=== PATIENT | female | born 2000 | race Caucasian/White ===

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

== ENCOUNTER 2020-03-31 17:50 | Emergency (ER) | payer OTHER ==
[~2020-03-31] VITALS: Ht 165.1 cm; Wt 90.7 kg
[2020-03-31 18:44] VITALS: BP 85/57
--- NOTE | 2020-03-31 19:00 | NUR ---
APPLIED DRESSING TO RIGHT 5TH DIGIT WITHOUT ANY ISSUES
== END 2020-03-31 19:35 | disposition home or self-care (01) ==
LOC: MED 17:50
DX: S61.217A Laceration without foreign body of left little finger without damage to nail, initial encounter (principal); J45.909 Unspecified asthma, uncomplicated; W45.8XXA Other foreign body or object entering through skin, initial encounter; Y93.G1 Activity, food preparation and clean up; Y92.090 Kitchen in other non-institutional residence as the place of occurrence of the external cause; Y99.8 Other external cause status
CPT/HCPCS: 12001; 90471; 90715; 99283

== ENCOUNTER 2020-04-07 18:17 | Emergency (ER) | payer OTHER ==
[~2020-04-07] VITALS: Ht 165.1 cm; Wt 92.1 kg
[2020-04-07 18:20] VITALS: BP 109/63
[2020-04-07 18:35] VITALS: BP 109/63
--- NOTE | 2020-04-07 18:35 | NUR ---
Patient presents to ED for suture removal to left 5th digit. Sutures placed on 03/31 medx: [email or web address]
--- NOTE | 2020-04-07 18:35 | NUR ---
Patient discharged with v/s stable. Written and verbal after care instructions given and explained. Patient verbalized understanding. Ambulatory with steady gait. All questions addressed prior to discharge. Advised to follow up with PMD.
== END 2020-04-07 18:35 | disposition home or self-care (01) ==
LOC: MED 18:17
DX: S61.217D Laceration without foreign body of left little finger without damage to nail, subsequent encounter (principal); J45.909 Unspecified asthma, uncomplicated; Z48.00 Encounter for change or removal of nonsurgical wound dressing; X58.XXXD Exposure to other specified factors, subsequent encounter
CPT/HCPCS: 99281

== ENCOUNTER 2020-09-06 23:06 | Emergency (ER) | payer OTHER ==
[~2020-09-06] VITALS: Ht 165.1 cm; Wt 88.9 kg
[2020-09-06 23:18] VITALS: BP 127/68
[2020-09-07] MEDS ORDERED: ACETAMINOPHEN EXTRA STRENGTH 500 MG TAB PO ONE (00:15)
[2020-09-07] MEDS ORDERED: IBUP-2218 PO (03:04)
[2020-09-07 03:21] VITALS: BP 123/59
== END 2020-09-07 03:21 | disposition home or self-care (01) ==
LOC: MED 23:06
DX: S91.111A Laceration without foreign body of right great toe without damage to nail, initial encounter (principal); J45.909 Unspecified asthma, uncomplicated; W01.0XXA Fall on same level from slipping, tripping and stumbling without subsequent striking against object, initial encounter; Y93.21 Activity, ice skating; Y92.89 Other specified places as the place of occurrence of the external cause; Y99.8 Other external cause status
CPT/HCPCS: 73610; 99283

== ENCOUNTER 2021-04-27 13:47 | Emergency (ER) | payer OTHER ==
[~2021-04-27] VITALS: Ht 165.1 cm; Wt 90.7 kg
[2021-04-27 13:57] VITALS: BP 127/77
--- NOTE | 2021-04-27 14:01 | NUR ---
PT AMB TO BED 5.
--- NOTE | 2021-04-27 14:18 | NUR ---
XRAY AT PATIENT BEDSIDE
--- NOTE | 2021-04-27 14:34 | NUR ---
21Y FEMALE FROM HOME WITH C/P CHEST PAIN/BACK PAIN X1 DAY. PER PATIENT "THIS HAS OCCURED 5 TIMES THIS MONTH SINCE GIVING ." PT DENIES ANY SOB, FEVER/CHILLS, N/V. PT STATED THE PAIN IS FELT IN HER ENTIRE BACK/CHEST REGION. PT DENIES ANY TRAUMA AND STATED THE PAIN RANDOMLY OCCURS. NO SIGNS OF TRAUMA NOTED. PT IS A&OX4. SKIN DRY AND INTACT. PT PLACED ON BEDSIDE MIXER OPERATOR AND PUT INTO GOWN. PMH: ASTHMA NKA
--- NOTE | 2021-04-27 14:45 | NUR ---
18G IV ESTABLISHED IN R AC AND BLOOD WORK COLLECTED. BLOOD WORK HANDED TO ROBOTIC MAINTENANCE TECHNICIAN [facility]
--- NOTE | 2021-04-27 14:50 | NUR ---
PT PROVIDED WITH CUP OF WATER BEDSIDE
--- NOTE | 2021-04-27 14:50 | NUR ---
CT CONSENT SIGNED AND PLACED INTO PATIENT CHART
[2021-04-27 15:12] LABS: BASOPHILS % (AUTO) 0.2 % (0.0-2.0); EOSINOPHILS % (AUTO) 0.6 % (0.0-4.0); HEMATOCRIT 39.3 % (36-48); HEMOGLOBIN 13.5 g/dL (12.0-16.0); LYMPHOCYTES # (AUTO) 1.1 K/uL (2.5-16.5); LYMPHOCYTES % (AUTO) 20.3 % (20.5-51.1); MEAN CORPUSCULAR HEMOGLOBIN 29 pg (27-31); MEAN CORPUSCULAR HGB CONC 34 g/dL (33-37); MONOCYTES # (AUTO) 0.5 K/uL (0.8-1.0); MONOCYTES % (AUTO) 9.2 % (1.7-9.3); NEUTROPHILS # (AUTO) 3.7 K/uL (1.8-7.7); NEUTROPHILS % (AUTO) 69.7 % (42.2-75.2); PLATELET COUNT (AUTO) 170 K/uL (140-450); RED BLOOD CELL COUNT(AUTO) 4.62 MIL/uL (4.20-5.40); RED CELL DISTRIBUTION WIDTH 13.6 % (11.6-13.7); WHITE BLOOD COUNT (AUTO) 5.3 K/uL (4.8-10.8)
[2021-04-27] MEDS ORDERED: KETOROLAC 30 MG/ML VIAL IVP ONE (15:30)
[2021-04-27 15:52] LABS: ALBUMIN 3.6 g/dL (3.4-5.0); ANION GAP 14.9 (8-16); CARBON DIOXIDE 24.1 mmol/L (21-32); CREATININE 0.8 mg/dL (0.6-1.3); TOTAL BILIRUBIN 0.5 mg/dL (0.0-1.0)
--- NOTE | 2021-04-27 16:10 | NUR ---
Patient appears to be resting comfortably in bed. Vital Signs within normal limits. Respirations even and unlabored.
[2021-04-27 17:58] VITALS: BP 110/68
== END 2021-04-27 17:50 | disposition home or self-care (01) ==
LOC: MED 13:47
DX: R07.9 Chest pain, unspecified (principal); J45.909 Unspecified asthma, uncomplicated; Z98.890 Other specified postprocedural states
CPT/HCPCS: 36415; 71045; 71275; 80053; 81025; 84703; 85025; 99285; Q0092; Q9967; 93005